=== PATIENT | male | born 1985 | race Caucasian/White ===

== ENCOUNTER → 2021-05-12 14:44 | Outpatient (BNVA) | payer BC, SELFPAY | PROVIDERS: PCP Internal Medicine; Visit Provider Urology ==

== ENCOUNTER → 2021-07-15 11:10 | Outpatient (BNVA) | payer BC, SELFPAY | PROVIDERS: PCP Internal Medicine; Visit Provider Urology | DX: Z30.2 Encounter for sterilization (principal); F41.8 Other specified anxiety disorders; Z79.899 Other long term (current) drug therapy | CPT/HCPCS: 55250 ==

== ENCOUNTER → 2021-10-21 09:41 | Outpatient (BNVA) | payer BC, SELFPAY | PROVIDERS: PCP Internal Medicine; Visit Provider Urology ==

== ENCOUNTER → 2023-03-24 15:31 | Outpatient (BNVA) | payer BC, SELFPAY | PROVIDERS: PCP Internal Medicine; Visit Provider Nurse Practitioner Family | DX: Z13.89 Encounter for screening for other disorder (principal) ==

== ENCOUNTER → 2023-06-07 15:42 | Outpatient (REF) | payer BC, SELFPAY | LOC: HO.SL 15:42 | PROVIDERS: PCP Internal Medicine; Visit Provider Nurse Practitioner Family | DX: G47.19 Other hypersomnia (principal); G47.9 Sleep disorder, unspecified; R06.83 Snoring | CPT/HCPCS: 95806 ==

== ENCOUNTER → 2023-06-07 15:52 | Outpatient (BNV) | payer BC, SELFPAY | PROVIDERS: PCP Internal Medicine; Visit Provider Psychiatry & Neurology Neurology | DX: R06.83 Snoring (principal) | CPT/HCPCS: 95806 ==

== ENCOUNTER 2023-06-28 14:39 | Outpatient (AMB) | payer BC, SELFPAY ==
--- NOTE | 2023-06-28 14:41 | MHC.OFFVIS ---
Intake Vital Signs 06/28/23 14:48 Height 5 ft 5 in Weight 170 lb BMI 28.3 BP 129/73 Blood Pressure Location Rt brachial Position Sitting Pulse 66 Intake Visit Reasons: Hemorrhoids, painful and bleeding Intake Note: This patient presents for an assessment for painful and bleeding hemorrhoids. Patient c/o; rectal bleeding, describes pain, denies constipation. Retail Buyer Required: No Accompanied by: Self / Same As Patient Allergies pollen Allergy (Unknown, Uncoded 06/28/23 14:47) Unknown Medication List - Last Reconciled 06/28/23 by Gabe Jalloh MD fluticasone furoate 27.5 mcg/actuation (Flonase Sensimist) 1 spray intranasal DAILY propranolol ER 80 mg PO BEDTIME 30 days sumatriptan succinate 3 mg (0.5 mL) subcut Q1H PRN 30 days sumatriptan succinate 50 - 100 mg orally at onset of headache, may repeat in 2 hrs PRN; max 2 tabs per day or 4 tabs/week (may take with Ibuprofen or Aleve) 30 days HPI Hemorrhoids, painful and bleeding HPI Details 38-year-old male for hemorrhoid issues. He says that he really was not aware that he had hemorrhoids in the past. However exactly 1 week ago for a bowel movement, he noted swelling in the anus along with pain. This seemed to have progressed the next few days. He said that he had felt this lump outside his anus that time. He says the pain was most severe on the 3rd day. Since that time, he says that the pain had since subsided. However this morning, he had noticed blood during a bowel movement and this lump seemed to had been oozing since that time. He therefore was sent to me by his primary care physician. He actually says that his pain has improved significantly ready. He denies being constipated. [facility] Medical History (Updated 06/28/23 @ 15:14 by Gabe Jalloh MD) Generalized headaches Thrombosed external hemorrhoid Surgical History History of vasectomy Family History Father Hypertension Sleep apnea Paternal Uncle Sleep apnea Paternal Uncle Sleep apnea Paternal Uncle Sleep apnea Social History Alcohol intake: current Alcohol intake frequency: a few times a week Patient Tobacco Use Status: Never used Tobacco Review of Systems Const Denies chills and Denies fever(s) Card Denies chest pain, Denies dyspnea and Denies dyspnea on exertion Resp Denies cough, Denies dyspnea and Denies dyspnea on exertion GI Reports hematochezia and Denies change in bowel habits Denies hematuria and Denies difficulty urinating Musc Denies back pain and Denies limited range of motion Neuro Denies focal weakness and Denies convulsions Psych Denies depression and Denies mood swings Physical Exam Vital Signs: Last Vital Signs Pulse 66 06/28/23 14:48 BP 129/73 06/28/23 14:48 BMI result Body Mass Index 28.3 Const General: comfortable and no acute distress Orientation/consciousness: patient oriented x3 Neck Neck: Yes no lymphadenopathy Resp Auscultation: clear to auscultation bilaterally Cardio Rhythm: regular rhythm GI Other: Rectal exam - thrombosed external hemorrhoid on the right, about 1.3 cm, with note of exposed clot, that seems to be draining on its own redness, no active bleeding; anoscopy deferred Palpation (GI): Soft to palpation, nontender and no guarding Neuro General: patient oriented x3 Assessment & Plan Assessment & Plan (1) Thrombosed external hemorrhoid: Code(s): K64.5 - Perianal venous thrombosis Plan: He has a thrombosed external hemorrhoid as described above. This had been most painful last week. I told him that this seems to have past the peak of its pain level and the pain has been subsiding. He says that the reason he came today was that because he had notice blood which started this morning. Examination shows that the thrombosed seems to be draining spontaneously. I told him that we do not need to do any debridement or I&D at this time. We will allow the clot to drain on its own. I did instruct him on hot Sitz baths to hasten this process. He says he does not need any pain medications at this time I will see him again in the office next week to do a wound check. He is comfortable with the plan. He says he will call the office if he has any concerns. Coding Level of Care Code New Pt Level 3 (56425) Diagnoses Thrombosed external hemorrhoid K64.5
[2023-06-28 14:48] VITALS: BP 129/73; PULSE 66; BMI 28.3
== END 2023-06-28 15:13 | disposition home or self-care (01) ==
PROVIDERS: PCP Internal Medicine; Visit Provider Surgery
DX: K64.5 Perianal venous thrombosis (principal)
CPT/HCPCS: 99203

== ENCOUNTER → 2023-06-28 14:39 | Outpatient (BNVA) | payer BC, SELFPAY | PROVIDERS: PCP Internal Medicine; Visit Provider Surgery ==

== ENCOUNTER 2023-07-06 13:46 | Outpatient (AMB) | payer BC, SELFPAY ==
--- NOTE | 2023-07-06 13:50 | MHC.OFFVIS ---
Intake Vital Signs 07/06/23 13:52 Height 5 ft 5 in Weight 169 lb 12.095 oz BMI 28.2 BP 111/64 Blood Pressure Location Rt brachial Position Sitting Pulse 66 Intake Visit Reasons: thrombosed external hemorrhoid, 1 wk follow up Intake Note: This patient presents for a one week follow-up assessment for thrombosed external hemorrhoid. Patient c/o; reports improvement since last visit, denies changes or complaints at this time. 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 Accompanied by: Self / Same As Patient Allergies pollen Allergy (Unknown, Uncoded 07/06/23 13:51) Unknown Medication List - Last Reconciled 07/06/23 by Gabe Jalloh MD fluticasone furoate 27.5 mcg/actuation (Flonase Sensimist) 1 spray intranasal DAILY propranolol ER 80 mg PO BEDTIME 30 days sumatriptan succinate 3 mg (0.5 mL) subcut Q1H PRN 30 days sumatriptan succinate 50 - 100 mg orally at onset of headache, may repeat in 2 hrs PRN; max 2 tabs per day or 4 tabs/week (may take with Ibuprofen or Aleve) 30 days HPI thrombosed external hemorrhoid, 1 wk follow up HPI Details Here for for follow-up for his large thrombosed external hemorrhoid. I had seen him last March for this and was instructed to do hot Sitz baths. He says his pain has improved significantly and his swelling has gone down by a lot as well He still sees small amounts of blood once in a while on wiping. [facility] Medical History Generalized headaches Thrombosed external hemorrhoid Surgical History History of vasectomy Family History Father Hypertension Sleep apnea Paternal Uncle Sleep apnea Paternal Uncle Sleep apnea Paternal Uncle Sleep apnea Social History Alcohol intake: current Alcohol intake frequency: a few times a week Patient Tobacco Use Status: Never used Tobacco Review of Systems Const Denies chills and Denies fever(s) Card Denies chest pain Resp Denies cough GI Denies abdominal pain Denies difficulty urinating Physical Exam Vital Signs: Last Vital Signs Pulse 66 07/06/23 13:52 BP 111/64 07/06/23 13:52 BMI result Body Mass Index 28.2 Const General: comfortable and no acute distress Resp Effort & Inspection: normal respiratory effort GI Other: Rectal exam shows the thrombosed hemorrhoid to be much smaller, no inflammation, no induration, bleeding Assessment & Plan Assessment & Plan (1) Thrombosed external hemorrhoid: Code(s): K64.5 - Perianal venous thrombosis Plan: This has improved significantly with regards to pain, discomfort and swelling. I told him to continue doing hot Sitz baths. I expect this to continue to decrease in size any improve with regards to symptoms. I told him to come to the office to be re-evaluated if he has persistent problems down the line. He understands the option of hemorrhoidectomy for problematic hemorrhoids. Coding Level of Care Code Est Pt Level 3 (24262) Diagnoses Thrombosed external hemorrhoid K64.5
[2023-07-06 13:52] VITALS: BP 111/64; PULSE 66; BMI 28.2
== END 2023-07-06 14:21 | disposition home or self-care (01) ==
PROVIDERS: PCP Internal Medicine; Visit Provider Surgery
DX: K64.5 Perianal venous thrombosis (principal)
CPT/HCPCS: 99213

== ENCOUNTER → 2023-07-06 13:46 | Outpatient (BNVA) | payer BC, SELFPAY | PROVIDERS: PCP Internal Medicine; Visit Provider Surgery ==

== ENCOUNTER 2023-07-12 15:30 | Outpatient (AMB) | payer BC, SELFPAY ==
[2023-07-12 15:31] VITALS: BP 112/70; PULSE 61; O2SAT 96; BMI 28.7
--- NOTE | 2023-07-12 15:31 | A.OFFVIS_ITS ---
Intake Vital Signs 07/12/23 15:31 Height 5 ft 5 in Weight 172 lb 4 oz BMI 28.7 BP 112/70 Blood Pressure Location Lt brachial Position Sitting Pulse 61 Pulse Source Pulse Oximeter Pulse Oximetry (%) 96 Oxygen Delivery Method Room Air Intake Visit Reasons: 3m cluster headaches - LVM Intake Note: Pt presents for a f/u cluster headaches. Pt states things are better. Had to use the injectable Sumatriptan and the pill form. Also following up on the sleep study. Headaches have been infrequent. 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 Pt denies any significant interval medical changes. He reports he is having less of his typical low grade headache- last was a few weeks ago. Has only had 1-2 severe migraine since last visit here 4 months ago. He is tolerating the increase in his Propranolol well. Pt reports he has been using Sumatriptan tab with good effect. However it was less effective for the typical nocturnal migraine w/ aura attack. Thus, pt was started also on Sumatriptan 3mg inj. Since, he once used the Sumatriptan inj- he took the Sumatriptan tab 1st and then the Inj- which was able to maxwell the more severe migraine. His HST was inconclusive w/ AHI 0.3/hr and O2 zacarias 91%. He continues to snore, have gasping arousals, restless sleep, daytime tiredness. [facility] Medical History Generalized headaches Thrombosed external hemorrhoid Surgical History History of vasectomy Family History Father Hypertension Sleep apnea Paternal Uncle Sleep apnea Paternal Uncle Sleep apnea Paternal Uncle Sleep apnea Social History Alcohol intake: current Alcohol intake frequency: a few times a week Patient Tobacco Use Status: Never used Tobacco Review of Systems Const All systems reviewed & are unremarkable except as noted in HPI and below Physical Exam Vital Signs: Last Vital Signs Pulse 61 07/12/23 15:31 BP 112/70 07/12/23 15:31 Pulse Ox 96 07/12/23 15:31 Oxygen Delivery Method Room Air 07/12/23 15:31 BMI result Body Mass Index 28.7 Const General: cooperative and no acute distress Orientation/consciousness: patient oriented x3 HEENT Head: Yes normocephalic Resp Effort & Inspection: normal respiratory effort and able to speak in complete sentences Neuro General: patient oriented x3, gait normal and CN's II-XI intact bilaterally Cognition (Neuro): normal cognition Motor exam (neuro): 5/5 motor strength present throughout Psych Appearance: grossly normal Mental Status: mental status grossly normal Speech and movement: Normal speech and movement present Affect: normal affect Attitude: cooperative Thought process: Normal thought process present Thought content: Normal thought content present Insight: Good insight present (Psych) Judgement: Good judgement present (Psych) Assessment & Plan Assessment & Plan (1) Migraine with aura: Comment: Typically presents as: abrupt onset in the middle of the night. A/w having a very cold to burning sensation over 10 minutes and seeing rainbows, photophobia, phonophobia, osmophobia, N/V/D. Code(s): G43.109 - Migraine with aura, not intractable, without status migrainosus (2) Headache: Comment: Typically presents as: Base of skull, behind his ears, temples mild dull pain. Not a/w photo/phonophobia, N/V. Code(s): R51.9 - Headache, unspecified (3) Sleep difficulties: Code(s): G47.9 - Sleep disorder, unspecified (4) Snoring: Code(s): R06.83 - Snoring (5) Excessive daytime sleepiness: Code(s): G47.19 - Other hypersomnia Plan Reviewed HST- inconclusive Pt advised to undergo in-lab sleep study to assess for sleep apnea- pt interested in alternate treatments for LM. Future considerations: mandibular device For acute headache treatment: Discussed importance of taking acute medications at the first sign of headache, however stressed importance of avoiding acute medication overuse (especially with combined headache medications). Continue Sumatriptan 100mg tab, 1/2 - 1 tab (50-100mg) at onset of headache, may repeat in 2 hours. Max of 2 tabs (200mg) per 24 hours. May adjunct with OTC Tylenol 650mg q 4 hours, Ibuprofen 600mg q 6 hours, or Naproxen 440mg q 12 hrs prn. Continue Sumatriptan inj 3mg q 1 hr prn, max 2 inj per day. Previous acute migraine medication trials: Unknown Acute migraine medication contraindications: None at this time. For headache prevention medication: Continue Propranolol ER 80mg qhs. Previous migraine prevention medication trials: No other Migraine prevention medication contraindications: None at this time. f/u in 6 months or sooner prn Orders: Orders RT PSG in-lab sleep study Today G47.19 - Other hypersomnia, G47.9 - Sleep disorder, unspecified, R06.83 - Snoring Coding Level of Care Code Est Pt Level 4 (01959) Diagnoses Migraine with aura G43.109 Headache R51.9 Sleep difficulties G47.9 Snoring R06.83 Excessive daytime sleepiness G47.19
== END 2023-07-12 16:17 | disposition home or self-care (01) ==
PROVIDERS: Visit Provider Nurse Practitioner Family
DX: G43.109 Migraine with aura, not intractable, without status migrainosus (principal); R51.9 Headache, unspecified; G47.9 Sleep disorder, unspecified; R06.83 Snoring; G47.19 Other hypersomnia
CPT/HCPCS: 99214

== ENCOUNTER → 2023-07-12 15:30 | Outpatient (BNVA) | payer BC, SELFPAY | PROVIDERS: Visit Provider Nurse Practitioner Family ==

== ENCOUNTER → 2023-07-29 21:24 | Outpatient (REF) | payer BC, SELFPAY | LOC: HO.SL 21:24 | PROVIDERS: PCP Internal Medicine; Visit Provider Nurse Practitioner Family | DX: G47.19 Other hypersomnia (principal); G47.9 Sleep disorder, unspecified; R06.83 Snoring | CPT/HCPCS: 95810 ==

== ENCOUNTER → 2023-07-29 21:36 | Outpatient (BNV) | payer BC, SELFPAY | PROVIDERS: PCP Internal Medicine; Visit Provider Psychiatry & Neurology Neurology | DX: R06.83 Snoring (principal); G47.19 Other hypersomnia | CPT/HCPCS: 95810 ==

== ENCOUNTER 2024-03-23 14:52 | Outpatient (AMB) | payer BC, SELFPAY ==
--- NOTE | 2024-03-23 15:10 | A.OFFVIS_ITS ---
Intake Visit Reasons: 8 week follow up Intake Note: Patient is present for follow up Allergies pollen Allergy (Unknown, Uncoded 03/23/24 15:16) Unknown HPI Comments Details: Maximo is a pleasant male. He is a patient of Dr. Rios. He is here for the following urologic condition - vasectomy - testicular pain Pain on left side of testicle Likely area of prior vasectomy Recommend anti-inflammatory Vasectomy post evaluation The patient presents for office semen analysis Vasectomy June 2021 He is currently - He has fathered 2 child, with a single partner. The youngest child is greater than 1-year-old His partner -, is aware and permissive for a vasectomy Semen analysis shows no sperm a under high-power field Minimal issues following vasectomy PFS Medical History Thrombosed external hemorrhoid Generalized headaches Surgical History History of vasectomy Family History Father Hypertension Sleep apnea Paternal Uncle Sleep apnea Paternal Uncle Sleep apnea Paternal Uncle Sleep apnea Social History Alcohol intake: current Alcohol intake frequency: a few times a week Patient Tobacco Use Status: Never used Tobacco Review of Systems Const Denies chills and Denies fever(s) Card Reports no additional complaints and Denies syncope Resp Denies cough GI Denies abdominal pain and Denies heartburn Reports as per HPI and Denies change in libido Neuro Denies syncope Psych Denies change in libido Endo Denies change in libido Physical Exam Const General: cooperative, healthy appearing, comfortable and no acute distress Orientation/consciousness: patient oriented x3 HEENT Face and sinus: Yes normal facial exam Mouth: moist mucous membranes Neck Neck: Yes normal visual inspection, Yes full ROM and Yes trachea midline Chest Chest palpation & inspection: normal inspection of the chest Resp Effort & Inspection: normal respiratory effort, able to speak in complete sentences and no respiratory distress GI Inspection: Yes normal to inspection Back/Spine/Pelvis Cervical Spine: normal cervical lordosis Thoracic/Lumbar Spine: thoracic and lumbar spine normal to inspection Skin General skin exam: no rashes or lesions noted Neuro General: patient oriented x3, gait normal, tone normal and moves all extremities Extrem General: Yes normal to inspection and Yes capillary refill normal Assessment & Plan Assessment & Plan (1) Testicular pain: Code(s): N50.819 - Testicular pain, unspecified Category: Medical Plan Six week follow-up Medications: New meloxicam 15 mg PO DAILY 30 tabs 0RF 30 days N50.819 - Testicular pain, unspecified, R10.31 - Right lower quadrant pain, R10.32 - Left lower quadrant pain Patient Instructions: Imaging studies, laboratory and physical exam results were discussed and reviewed in detail. No major barriers to patient understanding were identified. An opportunity to ask questions regarding the treatment plan was provided. All questions were answered. The patient expressed understanding and agreement with the above treatment plan. The patient is aware they should contact our office by phone for worsening of their current condition or the appearance of new urologic symptoms. Compliance is encouraged with any medications and followup testing that is ordered. It is a privilege to participate in the urologic care of your patient. If you have any questions or concerns regarding treatment for the above conditions, or other urologic issues, please do not hesitate to contact me. The office telephone contact is [phone]. This note is constructed using voice recognition software. While every effort has been made to ensure accuracy coding compliance specialist errors may have been included. Yours sincerely, Dr Pedro Ling MD, [facility] - Urology Providers of Expert, Compassionate Care for the Genitourinary System Coding Level of Care Code Est Pt Level 4 (21724) Diagnoses Testicular pain N50.819
== END 2024-03-23 16:10 | disposition home or self-care (01) ==
PROVIDERS: PCP Internal Medicine; Visit Provider Urology
DX: N50.819 Testicular pain, unspecified (principal)
CPT/HCPCS: 99213

== ENCOUNTER → 2024-03-23 14:52 | Outpatient (BNVA) | payer BC, SELFPAY | PROVIDERS: PCP Internal Medicine; Visit Provider Urology ==

== ENCOUNTER 2024-04-05 14:00 | Outpatient (AMB) | payer BC, SELFPAY ==
--- NOTE | 2024-04-05 14:00 | A.OFFVIS_ITS ---
Intake Visit Reasons: 6 mo f/u - Headache-CONF Intake Note: Patient presents for 6 months f/u for headache. Allergies pollen Allergy (Unknown, Uncoded 03/23/24 15:16) Unknown Medication List - Last Reconciled 04/05/24 by JUAN RAMON Guzmán fluticasone furoate 27.5 mcg/actuation (Flonase Sensimist) 1 spray intranasal DAILY meloxicam 15 mg PO DAILY 30 days propranolol ER 80 mg PO BEDTIME 30 days sumatriptan succinate 3 mg (0.5 mL) subcut Q1H PRN 30 days sumatriptan succinate 50 - 100 mg orally at onset of headache, may repeat in 2 hrs PRN; max 2 tabs per day or 4 tabs/week (may take with Ibuprofen or Aleve) 30 days HPI Comments Details: 39-yr-old male presents for f/u [employer] visit via [facility] Pt denies any significant interval medical changes. Pt reports that his migraines are much better since Propranolol ER was increased to 80mg qd. Tolertaing Propranolol well- no usual lightheadedness. Has a breakthrough milder migraine upon awakening- 2-3 x's per month. These respond to a couple of Advil w/in a few hours. He has not had a severe nocturnal migraine in a long time . Has only needed to use the as needed sumatriptan injection once since the last visit. Sleep is ok. The last in-lab sleep study did not show sleep apnea, just some snoring. Baseline headache characteristics: Headache 1: Base of skull, behind his ears, temples. Milder dull pain. Denies associated photo/phonophobia, N/V. Headache 2: Severe headache that comes in the middle of the night. Blasts me out of sleep . Very cold to burning up over 10 minutes. Cannot stay in bed. A/w seeing rainbows, photophobia, phonophobia, osmophobia, N/V/D. Once he vomits, the headache severity subsides and then can lay down, and the headache resolves. [facility] Medical History Thrombosed external hemorrhoid Generalized headaches Surgical History History of vasectomy Family History Father Hypertension Sleep apnea Paternal Uncle Sleep apnea Paternal Uncle Sleep apnea Paternal Uncle Sleep apnea Social History Alcohol intake: current Alcohol intake frequency: a few times a week Patient Tobacco Use Status: Never used Tobacco Physical Exam Const General: cooperative and no acute distress Orientation/consciousness: patient oriented x3 Resp Effort & Inspection: normal respiratory effort and able to speak in complete sentences Neuro General: patient oriented x3 Cognition (Neuro): normal cognition Psych Appearance: grossly normal Mental Status: mental status grossly normal Speech and movement: Normal speech and movement present Affect: normal affect Attitude: cooperative Telehealth Telehealth Telehealth Platform: [facility] Location of provider rendering services: practice address Location of patient: address on file Patient Identification confirmed using: Name, : Yes Telehealth method: video Patient verbally consented to treatment: Yes Patient verbally consented to billing insurance company: Yes Patient informed of any privacy concerns related to visit: Yes Minutes spent on Phone/Video with Pt.: 12 Assessment & Plan Assessment & Plan (1) Migraine with aura: Comment: Typically presents as: abrupt onset in the middle of the night. A/w having a very cold to burning sensation over 10 minutes and seeing rainbows, photophobia, phonophobia, osmophobia, N/V/D. Code(s): G43.109 - Migraine with aura, not intractable, without status migrainosus Category: Medical (2) Headache: Comment: Typically presents as: Base of skull, behind his ears, temples mild dull pain. Not a/w photo/phonophobia, N/V. Code(s): R51.9 - Headache, unspecified Category: Medical (3) Sleep difficulties: Code(s): G47.9 - Sleep disorder, unspecified Category: Medical Plan Reviewed in-lab sleep study- no evidence for sleep apnea, there was snoring noted. Sleep imporved. Monitor. Future considerations: ENT consult. ? ? For acute headache treatment: Advil 400-600mg q 4-6 hrs prn. Continue Sumatriptan 100mg tab, 1/2 - 1 tab (50-100mg) at onset of headache, may repeat in 2 hours. Max of 2 tabs (200mg) per 24 hours. May adjunct with OTC Tylenol 650mg q 4 hours, Ibuprofen 600mg q 6 hours, or Naproxen 440mg q 12 hrs prn. Continue Sumatriptan inj 3mg q 1 hr prn, max 2 inj per day. Previous acute migraine medication trials: Unknown Acute migraine medication contraindications: None at this time. ? For headache prevention medication: Continue Propranolol ER 80mg qhs. Previous migraine prevention medication trials: No other Migraine prevention medication contraindications: None at this time. ? f/u in 9 months or sooner prn Medications: Refilled propranolol ER 80 mg PO BEDTIME 30 days 30 caps 6RF Scribe Plan - Not visible on output: Reviewed possible medication side effects, including but not limited to drowsiness, dizziness. Coding Level of Care Code Tele Est Pt Level 4 (23215) Diagnoses Migraine with aura G43.109 Headache R51.9 Sleep difficulties G47.9
== END 2024-04-05 14:30 | disposition home or self-care (01) ==
LOC: HO.HSMS 14:00
PROVIDERS: PCP Internal Medicine; Visit Provider Nurse Practitioner Family
DX: G43.109 Migraine with aura, not intractable, without status migrainosus (principal); G47.9 Sleep disorder, unspecified
CPT/HCPCS: 99214

== ENCOUNTER → 2024-04-05 14:00 | Outpatient (BNVA) | payer BC, SELFPAY | PROVIDERS: PCP Internal Medicine; Visit Provider Nurse Practitioner Family ==

== ENCOUNTER 2024-05-18 14:09 | Outpatient (AMB) | payer BC, SELFPAY ==
--- NOTE | 2024-05-18 14:12 | A.OFFVIS_ITS ---
Intake Visit Reasons: follow up Intake Note: Pt presents to the office today for a follow up. Urology Meds: None Blood Thinners:None Allergies pollen Allergy (Unknown, Uncoded 05/18/24 14:12) Unknown Medication List - Last Reconciled 05/18/24 by Pedro Ling MD fluticasone furoate 27.5 mcg/actuation (Flonase Sensimist) 1 spray intranasal DAILY meloxicam 15 mg PO DAILY 30 days propranolol ER 80 mg PO BEDTIME 30 days sumatriptan succinate 3 mg (0.5 mL) subcut Q1H PRN 30 days sumatriptan succinate 50 - 100 mg orally at onset of headache, may repeat in 2 hrs PRN; max 2 tabs per day or 4 tabs/week (may take with Ibuprofen or Aleve) 30 days HPI Comments Details: Maximo is a pleasant male. He is a patient of Dr. Rios. He is here for the following urologic condition - vasectomy - testicular pain Testicular pain responded to short course of anti-inflammatories 30 day prescription provided for him to use intermittently Able to work without difficulty Vasectomy post evaluation The patient presents for office semen analysis Vasectomy June 2021 He is currently - He has fathered 2 child, with a single partner. The youngest child is greater than 1-year-old His partner -, is aware and permissive for a vasectomy Semen analysis shows no sperm a under high-power field Minimal issues following vasectomy PFSH Medical History Thrombosed external hemorrhoid Generalized headaches Surgical History History of vasectomy Family History Father Hypertension Sleep apnea Paternal Uncle Sleep apnea Paternal Uncle Sleep apnea Paternal Uncle Sleep apnea Social History Alcohol intake: current Alcohol intake frequency: a few times a week Patient Tobacco Use Status: Never used Tobacco Review of Systems Const Denies chills and Denies fever(s) Card Reports no additional complaints and Denies syncope Resp Denies cough GI Denies abdominal pain and Denies heartburn Reports as per HPI and Denies change in libido Neuro Denies syncope Psych Denies change in libido Endo Denies change in libido Physical Exam Const General: cooperative, healthy appearing, comfortable and no acute distress Orientation/consciousness: patient oriented x3 HEENT Face and sinus: Yes normal facial exam Mouth: moist mucous membranes Neck Neck: Yes normal visual inspection, Yes full ROM and Yes trachea midline Chest Chest palpation & inspection: normal inspection of the chest Resp Effort & Inspection: normal respiratory effort, able to speak in complete sentences and no respiratory distress GI Inspection: Yes normal to inspection Back/Spine/Pelvis Cervical Spine: normal cervical lordosis Thoracic/Lumbar Spine: thoracic and lumbar spine normal to inspection Skin General skin exam: no rashes or lesions noted Neuro General: patient oriented x3, gait normal, tone normal and moves all extremities Extrem General: Yes normal to inspection and Yes capillary refill normal Assessment & Plan Assessment & Plan (1) Testicular pain: Code(s): N50.819 - Testicular pain, unspecified Category: Medical Plan Twelve month follow-up Patient Instructions: Imaging studies, laboratory and physical exam results were discussed and reviewed in detail. No major barriers to patient understanding were identified. An opportunity to ask questions regarding the treatment plan was provided. All questions were answered. The patient expressed understanding and agreement with the above treatment plan. The patient is aware they should contact our office by phone for worsening of their current condition or the appearance of new urologic symptoms. Compliance is encouraged with any medications and followup testing that is ordered. It is a privilege to participate in the urologic care of your patient. If you have any questions or concerns regarding treatment for the above conditions, or other urologic issues, please do not hesitate to contact me. The office telephone contact is [phone]. This note is constructed using voice recognition software. While every effort has been made to ensure accuracy motion picture narrator errors may have been included. Yours sincerely, Dr Pedro Ling MD, [facility] - Urology Providers of Expert, Compassionate Care for the Genitourinary System Coding Level of Care Code Est Pt Level 3 (02216) Diagnoses Testicular pain N50.819
== END 2024-05-18 15:11 | disposition home or self-care (01) ==
PROVIDERS: PCP Internal Medicine; Visit Provider Urology
DX: N50.819 Testicular pain, unspecified (principal)
CPT/HCPCS: 99213

== ENCOUNTER → 2024-05-18 14:09 | Outpatient (BNVA) | payer BC, SELFPAY | PROVIDERS: PCP Internal Medicine; Visit Provider Urology ==

== ENCOUNTER 2025-01-04 13:51 | Outpatient (AMB) | payer BC, SELFPAY ==
--- NOTE | 2025-01-04 13:59 | MHC.OFFVIS ---
Vital Signs 01/04/25 14:06 Height 5 ft 5 in Weight 184 lb BMI 30.6 BP 120/82 Blood Pressure Location Lt brachial Position Sitting Pulse 67 Pulse Source Pulse Oximeter Pulse Oximetry (%) 96 Oxygen Delivery Method Room Air Intake Visit Reasons: 9 Month F/U Body Press Operator Required: No Accompanied by: Self / Same As Patient Allergies pollen Allergy (Unknown, Uncoded 01/04/25 14:05) Unknown Medication List - Last Reconciled 01/04/25 by JUAN RAMON Guzmán fluticasone furoate 27.5 mcg/actuation (Flonase Sensimist) 1 spray intranasal DAILY meloxicam 15 mg PO DAILY 30 days propranolol ER 80 mg PO BEDTIME 30 days sumatriptan succinate 3 mg (0.5 mL) subcut Q1H PRN 30 days sumatriptan succinate 50 - 100 mg orally at onset of headache, may repeat in 2 hrs PRN; max 2 tabs per day or 4 tabs/week (may take with Ibuprofen or Aleve) 30 days HPI Comments Details: 39-yr-old male presents for f/u for migraine. Pt denies any significant interval medical changes. Pt reports that his migraines are better controlled. He continues to tolerate the increased propranolol ER 80 mg dose well. He is having less than 1 migraine day per week. Though can have milder headache/migraine, that he tries to treat with fluids or an OTC NSAID. He has a more severe nocturnal migraine about once every 2 months, and he is better able to take the 1st sign. The Sumatriptan 3mg inj does help, can make him feel strange and like a chest tightness. He states he has symptoms are not bothersome enough to discontinue the sumatriptan injection.. He wonders if certain foods could be triggering his migraine or if it is a combination of things such as poor sleep, stress, and/or not eating enough. Baseline headache characteristics: Headache 1: Base of skull, behind his ears, temples. Milder dull pain. Denies associated photo/phonophobia, N/V. Headache 2: Severe headache that comes in the middle of the night. Blasts me out of sleep . Very cold to burning up over 10 minutes. Cannot stay in bed. A/w seeing rainbows, photophobia, phonophobia, osmophobia, N/V/D. Once he vomits, the headache severity subsides and then can lay down, and the headache resolves. States he is able to fall asleep okay, but is having difficulty maintaining sleep, especially after the 1st few hours of sleep. He does not know if this is related to stress. He does continue to snore- which is bothersome to his . The last in-lab sleep study did not show sleep apnea, though did show snoring. [facility] Medical History Thrombosed external hemorrhoid Generalized headaches Surgical History History of vasectomy Family History Father Hypertension Sleep apnea Paternal Uncle Sleep apnea Paternal Uncle Sleep apnea Paternal Uncle Sleep apnea Social History Alcohol intake: current Alcohol intake frequency: a few times a week Patient Tobacco Use Status: Never used Tobacco Physical Exam Vital Signs: Last Vital Signs Pulse 67 01/04/25 14:06 BP 120/82 01/04/25 14:06 Pulse Ox 96 01/04/25 14:06 Oxygen Delivery Method Room Air 01/04/25 14:06 BMI result Body Mass Index 30.6 Const General: cooperative and no acute distress Orientation/consciousness: patient oriented x3 Resp Effort & Inspection: normal respiratory effort and able to speak in complete sentences Neuro General: patient oriented x3 Cognition (Neuro): normal cognition Psych Appearance: grossly normal Mental Status: mental status grossly normal Speech and movement: Normal speech and movement present Affect: normal affect Attitude: cooperative Assessment & Plan Assessment & Plan (1) Migraine with aura: Comment: Typically presents as: abrupt onset in the middle of the night. A/w having a very cold to burning sensation over 10 minutes and seeing rainbows, photophobia, phonophobia, osmophobia, N/V/D. Code(s): G43.109 - Migraine with aura, not intractable, without status migrainosus Category: Medical Qualifiers: Status migrainosus presence: without status migrainosus Intractability: not intractable Qualified Code(s): G43.109 - Migraine with aura, not intractable, without status migrainosus (2) Headache: Comment: Typically presents as: Base of skull, behind his ears, temples mild dull pain. Not a/w photo/phonophobia, N/V. Code(s): R51.9 - Headache, unspecified Category: Medical Qualifiers: Headache type: unspecified (3) Sleep difficulties: Code(s): G47.9 - Sleep disorder, unspecified Category: Medical (4) Snoring: Code(s): R06.83 - Snoring Category: Medical Plan Reviewed in-lab sleep study- no evidence for sleep apnea, there was snoring noted. Reviewed simple strategies to optimize sleep hygiene and sleep quality. We will initiate referral for ENT consult to further assess snoring. ? For overall migraine treatment: Discussed importance of optimizing overall self-care, including eating healthy diet, maintaining a regular sleep schedule, engaging in regular physical activity. Reviewed current understanding of migraine triggers. Patient should track migraine and suspected triggers, to see if these are truly a trigger versus in association, or if they are trigger when associated with multiple other triggers. List of nonpharmacological migraine treatment strategies shared with patient. ? For acute headache treatment: Continue Advil 400-600mg q 4-6 hrs prn. Continue Sumatriptan 100mg tab, 1/2 - 1 tab (50-100mg) at onset of headache, may repeat in 2 hours. Max of 2 tabs (200mg) per 24 hours. May adjunct with OTC Tylenol 650mg q 4 hours, Ibuprofen 600mg q 6 hours, or Naproxen 440mg q 12 hrs prn. Advise patient to try taking sumatriptan at onset of milder headache, as these are likely migraine as a have associated light/sound sensitivity. Continue Sumatriptan inj 3mg q 1 hr prn nocturnal migraine a/w N/V, max 2 inj per day. Previous acute migraine medication trials: Unknown Acute migraine medication contraindications: None at this time. ? For headache prevention medication: Continue Propranolol ER 80mg qhs. Previous migraine prevention medication trials: No other Migraine prevention medication contraindications: None at this time. ? f/u in 6 months or sooner prn Orders: Referrals Ear/Nose/Throat Referral G47.9 - Sleep disorder, unspecified, R06.83 - Snoring Medications: Refilled sumatriptan succinate do not exceed 4 doses per 24 hrs 3 mg (0.5 mL) subcut Q1H PRN 6 mL 6RF migraine headache 30 days sumatriptan succinate 50 - 100 mg orally at onset of headache, may repeat in 2 hrs PRN; max 2 tabs per day or 4 tabs/week (may take with Ibuprofen or Aleve) 12 tabs 6RF migraine headache 30 days Coding Level of Care Code Est Pt Level 4 (29312) Diagnoses Migraine with aura and without status migrainosus, not intractable G43.109 Status migrainosus presence: without status migrainosus Intractability: not intractable Headache R51.9 Headache type: unspecified Sleep difficulties G47.9 Snoring R06.83
== END 2025-01-04 14:56 | disposition home or self-care (01) ==
PROVIDERS: PCP Internal Medicine; Visit Provider Nurse Practitioner Family
DX: G43.109 Migraine with aura, not intractable, without status migrainosus (principal); R51.9 Headache, unspecified; G47.9 Sleep disorder, unspecified; R06.83 Snoring
CPT/HCPCS: 99214

== ENCOUNTER → 2025-01-04 13:51 | Outpatient (BNVA) | payer BC, SELFPAY | PROVIDERS: PCP Internal Medicine; Visit Provider Nurse Practitioner Family ==

== ENCOUNTER 2025-05-14 15:20 | Outpatient (AMB) | payer BC, SELFPAY ==
--- NOTE | 2025-05-14 15:42 | A.OFFVIS_ITS ---
Intake Visit Reasons: 1yr Intake Note: Patient is present for 1Y F/U Urology Medication:NONE Antibiotic Allergy:NONE Blood Thinner:NONE Automatic Washer Mechanic Required: No Allergies pollen Allergy (Unknown, Uncoded 05/14/25 15:44) Unknown HPI Comments Details: Maximo is a pleasant male. He is a patient of Dr. Rios. He is here for the following urologic condition - vasectomy - testicular pain - erectile dysfunction Discussion regarding erectile dysfunction Able to obtain but can not maintain erection Decrease in frequency of morning erections Discussion regarding optimizing sleep and hormonal status Trial low-dose tadalafil Check testosterone Vasectomy post evaluation The patient presents for office semen analysis Vasectomy June 2021 He is currently - He has fathered 2 child, with a single partner. The youngest child is greater than 1-year-old His partner -, is aware and permissive for a vasectomy Semen analysis shows no sperm a under high-power field Minimal issues following vasectomy PFSH Medical History Thrombosed external hemorrhoid Generalized headaches Surgical History History of vasectomy Family History Father Hypertension Sleep apnea Paternal Uncle Sleep apnea Paternal Uncle Sleep apnea Paternal Uncle Sleep apnea Social History Alcohol intake: current Alcohol intake frequency: a few times a week Patient Tobacco Use Status: Never used Tobacco Review of Systems Const Denies chills and Denies fever(s) Card Reports no additional complaints and Denies syncope Resp Denies cough GI Denies abdominal pain and Denies heartburn Reports as per HPI and Denies change in libido Neuro Denies syncope Psych Denies change in libido Endo Denies change in libido Physical Exam Const General: cooperative, healthy appearing, comfortable and no acute distress Orientation/consciousness: patient oriented x3 HEENT Face and sinus: Yes normal facial exam Mouth: moist mucous membranes Neck Neck: Yes normal visual inspection, Yes full ROM and Yes trachea midline Chest Chest palpation & inspection: normal inspection of the chest Resp Effort & Inspection: normal respiratory effort, able to speak in complete sentences and no respiratory distress GI Inspection: Yes normal to inspection Back/Spine/Pelvis Cervical Spine: normal cervical lordosis Thoracic/Lumbar Spine: thoracic and lumbar spine normal to inspection Skin General skin exam: no rashes or lesions noted Neuro General: patient oriented x3, gait normal, tone normal and moves all extremities Extrem General: Yes normal to inspection and Yes capillary refill normal Assessment & Plan Assessment & Plan (1) Erectile dysfunction: Code(s): N52.9 - Male erectile dysfunction, unspecified Category: Medical Plan Check testosterone Trial daily tadalafil Orders: Orders Testosterone, Free/Total Today N52.9 - Male erectile dysfunction, unspecified Medications: New tadalafil [id number] [facility] [id number] Member [id number] 2.5 mg PO DAILY 90 days 90 tabs 0RF sexual activity N52.9 - Male erectile dysfunction, unspecified Discontinued meloxicam Discontinued Reason: Patient Completed Course 15 mg PO DAILY 30 days 30 tabs 0RF N50.819 - Testicular pain, unspecified, R10.31 - Right lower quadrant pain, R10.32 - Left lower quadrant pain Patient Instructions: This note is constructed using voice recognition software. While every effort has been made to ensure accuracy line repairer tower errors may have been included. Imaging studies, laboratory and physical exam results were discussed and reviewed in detail. No major barriers to patient understanding were identified. An opportunity to ask questions regarding the treatment plan was provided. All questions were answered. The patient expressed understanding and agreement with the above treatment plan. The patient is aware they should contact our office by phone for worsening of their current condition or the appearance of new urologic symptoms. Compliance is encouraged with any medications and followup testing that is ordered. It is a privilege to participate in the urologic care of your patient. If you have any questions or concerns regarding treatment for the above conditions, or other urologic issues, please do not hesitate to contact me. The office telephone contact is [phone]. Sincerely, Dr Pedro Ling MD, [facility] - Urology Compassionate Specialist Care for the Genitourinary System Coding Level of Care Code Est Pt Level 4 (10332) Diagnoses Erectile dysfunction N52.9
--- OUTSIDE RECORDS SUMMARY | 2025-05-14 17:50 | XMS_ITS | Clinical Summary ---
Author Organization [facility] Address [address] [place] [address] Phone Care Team Providers Care Environmental Research Project Manager Name Role Phone Hardeep Rios MD Primary Care Provider [phone] Allergies No known active allergies Medications fluticasone propionate (FLONASE) 50 mcg/actuation nasal spray 2 Sprays by Nasal route daily. 12/19/2018 Active propranoloL (INDERAL) 80 mg tablet Take 1 Tablet by mouth daily. 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 LM (obstructive sleep apnea) 03/12/2020 Seborrheic dermatitis 11/30/2012 Hyperuricemia 04/09/2010 Allergic rhinitis 12/23/2008 Severe frontal headaches 12/23/2008 Immunizations Name Administration Dates Next Due Hepatitis B Pediatric (Enger ix B; Recombivax HB) to less than 20 yo 06/18/1998,10/01/1997,08/15/1997 Influenza Quadravalent, MDCK , 0.5ml, preservative free (Flucelvax) 6mo and older 09/16/2022,09/03/2018 Influenza Quadravalent, MDCK , 0.5ml, with preservative (Flucelvax) 6mo and older 08/21/2017 Influenza trivalent, 0.5mL, preservative free (Fluarix; FluLaval; Fluzone) ages 6mo and older (Afluria) 3 years and older 09/12/2016,10/05/2015,09/15/2014,2012,08/20/2012,08/13/2011,08/16/2009 Pfizer Covid-19 Bivalent, Or iginal + Ba.1 (Non-cisimple Trademark [employer] (formerly SPARXlife)IRNATmySBX Bivalent) 11/12/2022 Td Tetanus diptheria (Tdvax) 7yo and older 07/08/2006,06/18/1998 Tdap Tetanus diptheria acell ular pertussis (Boostrix; Adacel) 7yo and older 02/15/2022,03/06/2013 Surgical History Surgery Date Site/Laterality Comments WISDOM TOOTH EXTRACTION PROCEDURE: HISTORICAL WISDOM TEETH EXTRACTION VASECTOMY 07/15/2021 PROCEDURE: NM VASECTOMY UNI/BI SPX W/POSTOP SEMEN EXAMS Medical History Medical History Date Comments Seborrheic dermatitis 11/30/2012 DX:Seborrh eic dermatitis Severe frontal headaches 12/23/2008 DX:Myrna re frontal headaches Allergic rhinitis 12/23/2008 DX:Allergic rh initis Optic disc anomaly DX:Optic disc anomaly Family History Medical History Relation Name Comments Hypertension Father Stroke Maternal Grandfather Stroke Maternal Grandmother Other: Scoliosis Mother Stroke Paternal Grandfather Other: CKD Paternal Grandmother Blindness Neg Hx Cataracts Neg Hx Glaucoma Neg Hx Macular degeneration Neg Hx Strabismus Neg Hx Relation Name Status Comments Brother Alive Father Alive htn, Maternal Grandfather (Age 70's) cva Maternal Grandmother (Age 70's) cva Mother Alive Paternal Grandfather Alive Paternal Grandmother Alive Sister 1 Alive Sister 2 Alive Social History Tobacco Use Types Packs/Day Years Used Date Smoking Tobacco: Never Smokeless Tobacco: Never Alcohol Use Standard Drinks/Week Comments Not Currently 0 (1 standard drink = 0.6 oz pur e alcohol) Sex and Gender Information Value Date Recorded Sex Assigned at Not on file Legal Sex Male 7:15 AM EST Gender Identity Not on file Sexual Orientation Not on file Obstetrics History Last Filed Vital Signs Vital Sign Reading Time Taken Comments Blood Pressure 111/79 01/31/2025 3:08 PM EST Pulse 67 01/31/2025 3:08 PM EST Temperature 36.3 ??C (97.4 ??F) 01/31/2025 3:08 PM ES T Respiratory Rate - - Oxygen Saturation 97% 01/31/2025 3:08 PM EST Inhaled Oxygen Concentration - - Weight 79.4 kg (175 lb) 10/08/2024 3:17 PM EST Height 165.1 cm (5' 5 ) 10/08/2024 3:17 PM EST Body Mass Index 29.12 10/08/2024 3:17 PM EST Plan of Treatment Health Maintenance Due Date Last Done Comments Depression Screening 11/06/2022 HIV Screening 11/06/2022 Hepatitis C Screening 11/06/2022 Social Influencers of Health Screening 11/06/2022 COVID-19 Vaccine ( season) 2024 04/04/2021, 03/07/2021 Influenza Vaccine (Season Ended) 2025 09/16/2022, 09/03/2018, 08/21/2017, Additional history exists Cholesterol Screening (Lipid Panel) 03/28/2028 03/28/2023 DTaP,Tdap,and Td Vaccines (5 - Td or Tdap) 02/16/2032 02/15/2022, 03/06/2013, 07/08/2006, Additional history exists Hepatitis B Vaccines Completed 06/18/1998, 10/01/1997, 08/15/1997 HIB Vaccines Aged Out No longer eligi ble based on patient's age to complete this topic HPV Vaccines Aged Out No longer eligi ble based on patient's age to complete this topic Hepatitis A Vaccines Aged Out No long er eligible based on patient's age to complete this topic IPV Vaccines Aged Out No longer eligi ble based on patient's age to complete this topic MMR Vaccines Aged Out No longer eligi ble based on patient's age to complete this topic Meningococcal ACWY Vaccine Aged Out N o longer eligible based on patient's age to complete this topic Meningococcal B Vaccine Aged Out No l onger eligible based on patient's age to complete this topic Pneumococcal Vaccine: Pediatrics (0 to 5 Years) and At-Risk Patients (6 to 64 Years) Aged Out No longer eligible based on patient's age to complete this topic RSV Immunization Patients Under 20 months Aged Out No longer eligible based on patient's age to complete this topic Varicella Vaccines Aged Out No longer eligible based on patient's age to complete this topic Procedures Procedure Name Priority Date/Time Associated Diagnosis Comments LIPID PANEL Routine 03/28/2023 from Last 3 Months or Most Recently Relevant to Health Maintenance Results * (ABNORMAL) Lipid panel (03/28/2023) LDL/HDL Ratio 3 0 - 4 Triglycerides 259(A) 0 - 150 mg/dL Cholesterol 192 0 - 200 mg/dL HDL 62 >=40 mg/dL LDL Cholesterol 79 0 - 100 mg/dL Blood Venous blood specimen / Unknown Historical Provider LAB BLOOD ORDERABLES Kinza l Result from Last 3 Months or Most Recently Relevant to Health Maintenance Insurance [employer] ([facility]) MEDICAID ADVANTAGE [facility] Care Teams Environmental Research Project Manager Relationship Specialty Start Date End Date Hardeep Rios MD [address] [place] [id number] PCP - General Internal Medicine 09/14/15
== END 2025-05-14 16:57 | disposition home or self-care (01) ==
LOC: HO.HUSH 15:20
PROVIDERS: PCP Internal Medicine; Visit Provider Urology
DX: N52.9 Male erectile dysfunction, unspecified (principal)
CPT/HCPCS: 99214

== ENCOUNTER → 2025-05-14 15:20 | Outpatient (BNVA) | payer BC, SELFPAY | PROVIDERS: PCP Internal Medicine; Visit Provider Urology | DX: Z13.89 Encounter for screening for other disorder (principal) ==

== ENCOUNTER 2025-07-08 15:08 | Outpatient (AMB) | payer BC, SELFPAY ==
--- NOTE | 2025-07-08 15:26 | MHC.OFFVIS ---
Vital Signs 07/08/25 15:27 Height 5 ft 5 in Weight 178 lb 6 oz BMI 29.7 BP 114/62 Blood Pressure Location Rt brachial Position Sitting Pulse 74 Pulse Source Pulse Oximeter Pulse Oximetry (%) 97 Oxygen Delivery Method Room Air Intake Visit Reasons: Follow up 6mo Intake Note: Patient presents follow up Migraine/Sleep. 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 Accompanied by: Self / Same As Patient Allergies pollen Allergy (Unknown, Uncoded 07/08/25 15:29) Unknown Medication List - Last Reconciled 07/08/25 by JUAN RAMON Guzmán fluticasone furoate 27.5 mcg/actuation (Flonase Sensimist) 1 spray intranasal DAILY naratriptan take 1/2 - 1 tab at onset of headache; if no relief may repeat 1 tab after at least 4 hrs; max = 2 tabs/24 hrs orally PRN; 30 days propranolol ER 80 mg PO BEDTIME 30 days sumatriptan succinate 3 mg (0.5 mL) subcut Q1H PRN 30 days tadalafil 2.5 mg PO DAILY 90 days HPI Comments Details: 39-yr-old male presents for f/u for migraine and sleep issues/snoring very Pt denies any significant interval medical changes. Pt reports that his migraines are better controlled. He continues to tolerate propranolol ER 80 mg dose well. He is having less than 1 more severe nocturnal migraine day per month. Though he did recently have 1 more severe migraine attack during the day, that came out of the blue. He can have milder headache/migraine, that he tries to treat with fluids or an OTC NSAID. The Sumatriptan 3mg inj does help, although it does cause a very mild strange sensation and chest tightness. He again states he has symptoms are not bothersome enough to discontinue the sumatriptan injection. He is no longer taking the sumatriptan tablet, as he has increased adverse effects (chest tightness tingling) from this compared to the injection He feels overall he is better able to take sumatriptan injection at the earliest sign of the migraine. Baseline headache characteristics: Headache 1: Base of skull, behind his ears, temples. Milder dull pain. Denies associated photo/phonophobia, N/V. Headache 2: Severe headache that comes in the middle of the night. Blasts me out of sleep . Very cold to burning up over 10 minutes. Cannot stay in bed. A/w seeing rainbows, photophobia, phonophobia, osmophobia, N/V/D. Once he vomits, the headache severity subsides and then can lay down, and the headache resolves. He has not heard from the ENT office that he was referred to at the last visit. He does continue to snore- which is bothersome to his . The last in-lab sleep study did not show sleep apnea, though did show snoring. [facility] Medical History Thrombosed external hemorrhoid Generalized headaches Surgical History History of vasectomy Family History Father Hypertension Sleep apnea Paternal Uncle Sleep apnea Paternal Uncle Sleep apnea Paternal Uncle Sleep apnea Social History Alcohol intake: current Alcohol intake frequency: a few times a week Patient Tobacco Use Status: Never used Tobacco Physical Exam Vital Signs: Last Vital Signs Pulse 74 07/08/25 15:27 BP 114/62 07/08/25 15:27 Pulse Ox 97 07/08/25 15:27 Oxygen Delivery Method Room Air 07/08/25 15:27 BMI result Body Mass Index 29.7 Const General: cooperative and no acute distress Orientation/consciousness: patient oriented x3 Resp Effort & Inspection: normal respiratory effort and able to speak in complete sentences Neuro General: patient oriented x3 and moves all extremities Cranial nerves: Yes CN's II-XII intact bilaterally Cognition (Neuro): normal cognition Gait exam (Neuro): Normal gait present Motor exam (neuro): 5/5 motor strength present throughout Psych Appearance: grossly normal Mental Status: mental status grossly normal Speech and movement: Normal speech and movement present Affect: normal affect Attitude: cooperative Assessment & Plan Assessment & Plan (1) Migraine with aura: Comment: Typically presents as: abrupt onset in the middle of the night. A/w having a very cold to burning sensation over 10 minutes and seeing rainbows, photophobia, phonophobia, osmophobia, N/V/D. Code(s): G43.109 - Migraine with aura, not intractable, without status migrainosus Category: Medical Qualifiers: Intractability: not intractable Status migrainosus presence: without status migrainosus Qualified Code(s): G43.109 - Migraine with aura, not intractable, without status migrainosus (2) Snoring: Code(s): R06.83 - Snoring Category: Medical (3) Headache: Comment: Typically presents as: Base of skull, behind his ears, temples mild dull pain. Not a/w photo/phonophobia, N/V. Code(s): R51.9 - Headache, unspecified Category: Medical Qualifiers: Headache type: unspecified Headache chronicity pattern: episodic headache Intractability: not intractable Qualified Code(s): R51.9 - Headache, unspecified (4) Sleep difficulties: Code(s): G47.9 - Sleep disorder, unspecified Category: Medical Plan For snorin in-lab sleep study- no evidence for sleep apnea, there was snoring noted. Previously reviewed simple strategies to optimize sleep hygiene and sleep quality. We will initiate a new referral for ENT consult to further assess snoring. ? For overall migraine treatment: Discussed importance of optimizing overall self-care, including eating healthy diet, maintaining a regular sleep schedule, engaging in regular physical activity. Monitor migraine and headache frequency List of nonpharmacological migraine treatment strategies previously shared with patient. ? For acute headache treatment: Continue Advil 400-600mg q 4-6 hrs prn. Discontinue Sumatriptan 100mg tab, 1/2 - 1 tab (50-100mg) order- not tolerated. Trial Naratriptan 2.5mg tab, 1/2 - 1 tab (1.25-2.5mg) at onset of headache, may repeat in 4 hours. Max of 2 tabs (5mg) per 24 hours. If needed, may take naratriptan with [id number] (OTC) Tylenol 650 -1000 mg every 4 -6 hours, or Ibuprofen (liquigel) 600mg every 6 hours, or Naproxen (liquigel) 440mg every 12 hrs as needed. Trial at onset of milder headache, as I suspect these are likely milder migraine headaches. Reviewed that naratriptan tends to be better tolerated than other oral triptans Potential adverse effects of naratriptan, include but are not limited to nausea, fatigue, chest tightness/tingling (usually passes within a few minutes), medication overuse headaches. Continue Sumatriptan inj 3mg q 1 hr prn nocturnal migraine a/w N/V, max 2 inj per day. Previous acute migraine medication trials: Sumatriptan 100 mg tab: Not tolerated. Acute migraine medication contraindications: None at this time. ? For headache prevention medication: Continue Propranolol ER 80mg qhs. Previous migraine prevention medication trials: No other Migraine prevention medication contraindications: None at this time. ? Will follow-up upon review of above and patient to follow-up in clinic in 12 months or sooner prn. Orders: Referrals Ear/Nose/Throat Referral G43.109 - Migraine with aura, not intractable, without status migrainosus, R06.83 - Snoring Medications: New naratriptan take 1/2 - 1 tab at onset of headache; if no relief may repeat 1 tab after at least 4 hrs; max = 2 tabs/24 hrs orally PRN; 12 tabs 6RF migraine headache 30 days Discontinued sumatriptan succinate Discontinued Reason: Doctor's Order (0.5 - 1 x 100 mg) 50 - 100 mg orally at onset of headache, may repeat in 2 hrs PRN; max 2 tabs per day or 4 tabs/week (may take with Ibuprofen or Aleve) 30 days 12 tabs 6RF migraine headache Coding Level of Care Code Est Pt Level 4 (88689) Diagnoses Migraine with aura and without status migrainosus, not intractable G43.109 Intractability: not intractable Status migrainosus presence: without status migrainosus Snoring R06.83 Nonintractable episodic headache, unspecified headache type R51.9 Headache type: unspecified Headache chronicity pattern: episodic headache Intractability: not intractable Sleep difficulties G47.9
[2025-07-08 15:27] VITALS: BP 114/62; PULSE 74; O2SAT 97; BMI 29.7
--- OUTSIDE RECORDS SUMMARY | 2025-07-08 15:27 | XMS_ITS | Clinical Summary ---
Author Organization [facility] Address [address] [place] [id number] Phone Care Team Providers Care Technology Professional Name Role Phone Hardeep Rios MD Primary Care Provider + Allergies Active Allergy Reactions Criticality Noted Date Comments Pollen Extracts 08/02/2024 Medications meloxicam (MOBIC) 15 MG tablet Take 1 tablet by mouth every morning. 05/18/2024 Active terbinafine HCL (LAMISIL) 250 mg tablet Take 1 tablet by mouth every morning. 07/02/2024 Active propranoloL (INDERAL LA) 80 mg 24 hr capsule Take 80 mg by mouth nightly at bedtime. 05/14/2024 Active Active Problems No known active problems Immunizations Immunization Administration Dates Next Due Tdap 02/15/2022 Social History Tobacco Use Types Packs/Day Years Used Date Smoking Tobacco: Unknown Tobacco Cessation:Counseling Given: Not Answered Alcohol Use Standard Drinks/Week Comments Not Currently 0 (1 standard drink = 0.6 oz pur e alcohol) Education Answer Date Recorded Are you interested in more education? Not on jaxon e 03/26/2023 Are you concerned about learning? Not on file 03/26/2023 No 03/26/2023 No 03/26/2023 Digital Access Answer Date Recorded No 04/26/2023 No 04/26/2023 Reliable internet access at home? Not on file 04/26/2023 Device with a working camera? Not on file Sex and Gender Information Value Date Recorded Sex Assigned at Male 02/15/2022 7:27 AM EDT Legal Sex Male 6:42 AM EDT Gender Identity Male 02/15/2022 7:27 AM EDT Sexual Orientation Not on file Last Filed Vital Signs Vital Sign Reading Time Taken Comments Blood Pressure 136/83 08/06/2024 10:23 AM EDT Pulse 55 08/06/2024 10:23 AM EDT Temperature 36.9 C (98.5 F) 08/06/2024 10:23 AM EDT Respiratory Rate 16 08/06/2024 10:23 AM EDT Oxygen Saturation 99% 08/06/2024 10:23 AM EDT Inhaled Oxygen Concentration - - Weight 77.1 kg (170 lb) 02/19/2022 11:46 AM EDT per pt Height 165.1 cm (5' 5 ) 02/19/2022 11:46 AM EDT per pt Body Mass Index 28.29 02/19/2022 11:46 AM EDT Plan of Treatment Health Maintenance Due Date Last Done Comments LIPID PANEL 1986 DEPRESSION SCREENING 1998 SMOKING Hx and SMOKELESS TOB ACCO SCREENING 1999 HEPATITIS C SCREENING 02/11/2004 HIV ONE-TIME SCREENING (18-6 5 YEARS) 02/11/2004 COVID-19 VACCINE (2023-2 5 season) 2024 Adult Td,Tdap Booster 02/16/2032 02/15/2022 HEPATITIS A VACCINES Aged Out No long er eligible based on patient's age to complete this topic HIB VACCINES Aged Out No longer eligi ble based on patient's age to complete this topic MENINGOCOCCAL VACCINES (ACWY) Aged Out No longer eligible based on patient's age to complete this topic MENINGOCOCCAL VACCINES (B) Aged Out N o longer eligible based on patient's age to complete this topic PNEUMOCOCCAL VACCINES (0-49 years) Aged Out No longer eligible based on patient's age to complete this topic Medical Devices Not on file Insurance [facility] PPO BLUE CROSS OUT OF STATE PPO BLUE CROSS OUT OF STATE PPO BLUE CROSS OUT OF STATE PPO BLUE CROSS OUT OF STATE PPO BLUE CROSS OUT OF STATE PPO BLUE CROSS OUT OF STATE PPO BLUE CROSS OUT OF STATE PPO BLUE CROSS OUT OF STATE PPO WORKERS COMPENSATION Care Teams Technology Professional Relationship Specialty Start Date End Date Hardeep Rios MD [address] [place] [phone] PCP - General Internal Medicine 02/15/22 Additional Source Comments The information contained in this document represents components of the legal health record. It is not the complete legal health record.[facility]
--- OUTSIDE RECORDS SUMMARY | 2025-07-08 15:27 | XMS_ITS | Clinical Summary ---
Author Organization [address] [facility] Address [address] [place] [address] Phone Care Team Providers Care Arterial Embalmer Name Role Phone Hardeep Rios MD Primary Care Provider [phone] Allergies No known active allergies Medications fluticasone [...] Pfizer Covid-19 Bivalent, Or iginal + Ba.1 (Non-Revision3 Trademark [employer] Bivalent) 11/12/2022 Td Tetanus diptheria (Tdvax) 7yo and older 07/08/2006,06/18/1998 Tdap Tetanus diptheria acell ular pertussis (Boostrix; Adacel) 7yo and older 02/15/2022,03/06/2013 Surgical History Surgery Date Site/Laterality Comments WISDOM TOOTH EXTRACTION PROCEDURE: HISTORICAL WISDOM TEETH EXTRACTION VASECTOMY 07/15/2021 PROCEDURE: [place] VASECTOMY UNI/BI SPX W/POSTOP SEMEN EXAMS Medical [...] 68 01/31/2025 3:08 PM EST Temperature 36.3 C (97.4 F) 01/31/2025 3:08 PM EST Respiratory Rate - - Oxygen Saturation 97% 01/31/2025 3:08 PM EST Inhaled Oxygen Concentration - - Weight 79.4 kg (175 lb) 10/08/2024 3:17 PM EST Height 165.1 cm (5' 5 ) 10/08/2024 3:17 PM EST Body Mass Index 29.12 10/08/2024 3:17 PM EST Plan of Treatment Health Maintenance Due Date Last Done Comments HIV Screening 11/06/2022 Hepatitis C Screening 11/06/2022 Social Influencers of Health Screening 11/06/2022 COVID-19 Vaccine ( season) 2024 04/04/2021, 03/07/2021 Depression Screening 11/28/2024 Influenza Vaccine (#1) 2025 , 09/03/2018, 08/21/2017, Additional history exists Cholesterol Screening [...] 5 Years) and At-Risk Patients (6 to 49 Years) Aged Out No longer eligible based [...] Most Recently Relevant to Health Maintenance Insurance [place] Care Teams Arterial Embalmer Relationship Specialty Start Date End Date Hardeep Rios MD [address] [place] [id number] PCP - General Internal Medicine 09/14/15
== END 2025-07-08 16:16 | disposition home or self-care (01) ==
LOC: HO.HSMS 15:09
PROVIDERS: PCP Internal Medicine; Visit Provider Nurse Practitioner Family
DX: G43.109 Migraine with aura, not intractable, without status migrainosus (principal); R06.83 Snoring; R51.9 Headache, unspecified; G47.9 Sleep disorder, unspecified
CPT/HCPCS: 99214